=== PATIENT | male | born 1990 | race Two or more races ===

== ENCOUNTER → 2016-12-29 | Outpatient (REF) | payer OTHER | LOC: M SMT 09:15 | PROVIDERS: ATTEND Urology | DX: Z30.2 Encounter for sterilization (principal) ==

== ENCOUNTER → 2017-05-06 | Outpatient (REF) | payer OTHER ==
[2017-05-06 10:25] LABS: IMMMOTILE SPERM CENTRIFUGED ABSENT (ABSENT); IMMOTILE SPERM ABSENT (ABSENT); MOTILE SPERM ABSENT (ABSENT); MOTILE SPERM CENTRIFUGED ABSENT (ABSENT)
== END ==
LOC: M SMT 09:06
PROVIDERS: ATTEND Urology
DX: Z30.2 Encounter for sterilization (principal)